=== PATIENT | male | born 1945 ===

== ENCOUNTER → 2020-12-10 15:00 | Outpatient (CLI) | payer OTHER | END | disposition home or self-care (01) | LOC: PPH VACUNA 15:00 | PROVIDERS: ATTEND Emergency Medicine Pediatric Emergency Medicine | DX: Z23 Encounter for immunization (principal) ==

== ENCOUNTER 2020-12-31 14:16 | Outpatient (CLI) | payer OTHER | END 2020-12-31 14:17 | disposition home or self-care (01) | LOC: PPH VACUNA 14:16 | PROVIDERS: ATTEND Emergency Medicine Pediatric Emergency Medicine | DX: Z23 Encounter for immunization (principal) ==